=== PATIENT | female | born 1960 | race Caucasian/White ===

== ENCOUNTER 2019-11-29 17:30 | Emergency (ER) | payer BC, OTHER ==
[~2019-11-29] VITALS: Ht 165.1 cm; Wt 122.5 kg
[2019-11-29 18:35] VITALS: BP 155/82
[2019-11-29] MEDS ORDERED: TETANUS-DIPTH-ACEL PERTUSSIS 0.5ML SYR Tdap IM ONE (19:30)
[2019-11-29] MEDS ORDERED: IBUPROFEN 800 MG TAB PO ONE (19:30)
[2019-11-29] MEDS ORDERED: BACITRACIN TOP OINT 1 UD PKG TOP ONE (21:45)
== END 2019-11-29 21:50 | disposition home or self-care (01) ==
LOC: ER 17:30
DX: S61.341A Puncture wound with foreign body of left index finger with damage to nail, initial encounter (principal); W45.8XXA Other foreign body or object entering through skin, initial encounter; Y93.D2 Activity, sewing; Y92.89 Other specified places as the place of occurrence of the external cause; Y99.8 Other external cause status
CPT/HCPCS: 12041; 73120; 90471; 90715